=== PATIENT | female | born 1970 | race Hispanic/Latino ===

== ENCOUNTER 2017-03-26 11:59 | Emergency (ER) | payer SELFPAY ==
[~2017-03-26] VITALS: Ht 160 cm; Wt 76.0 kg
[~2017-03-26 11:59] MED LIST: HEMOCYTE325 MG; ORTHO TRI-
[2017-03-26] MEDS ORDERED: BACLOFEN10 MG PO (12:14)
[2017-03-26] MEDS ORDERED: MOTRIN400 MG PO (12:14)
[2017-03-26] MEDS ORDERED: LORTAB 5-325 MG1 TAB PO (12:39)
[2017-03-26 12:43] VITALS: BP 125/74
== END 2017-03-26 12:49 | disposition home or self-care (01) | DRG 552 ==
LOC: ED 11:59
DX: M54.5 Low back pain (principal); X50.1XXA Overexertion from prolonged static or awkward postures, initial encounter; Y93.E2 Activity, laundry; Y92.009 Unspecified place in unspecified non-institutional (private) residence as the place of occurrence of the external cause